=== PATIENT | male | born 1980 | race African-American/Black ===

== ENCOUNTER 2016-10-18 19:27 | Emergency (ER) | payer OTHER ==
--- NOTE | 2016-10-18 20:54 | ED ANKLE/FOOT INJURY COMPLAINT ---
History of Present Illness General Chief Complaint: Foot or Ankle Injury Stated Complaint: PT RGT FOOT IS SWOLLEN Source: patient Exam Limitations: no limitations Allergies Coded Allergies: No Known Allergies (10/18/16) Triage Note: PER PT RLE SWELLING UP INTERMITTANTLY WITHOUT INJURY. THIS TIME 2 DAYS HX OF 3 STENTS 3 YRS AGO CARDIAC} Triage Nurses Notes Reviewed? yes HPI: This patient is a 36-year-old male with past medical history including myocardial infarction who presented to the emergency department today for evaluation of right foot swelling and pain. He reported that swelling and pain began approximately 2 days ago. He feels the pain mostly on the outside of his foot and the top of his foot. The pain is up to a 10 out of 10 with ambulation. He denied any trauma to the area. The patient did report that he is on his feet for many hours a day. He has had similar symptoms in the past when he works long hours and the swelling eventually went down. No radiation of the pain. It has been constant since onset. The patient reported that he tried taking Advil which did help his symptoms. He denied any knee pain or hip pain. No chest pain, difficulty breathing, or abdominal pain. No fevers or chills. (VANE WHALEY PA-C) Vital Signs & Intake/Output Vital Signs & Intake/Output Vital Signs Date Time Temp Pulse Resp B/P Pulse O2 O2 Flow FiO2 Ox Delivery Rate 10/18 2133 97.8 83 20 149/89 97 Room Air 10/18 1938 97.8 84 20 160/100 Reconcile Medications Naproxen (Naprosyn) 500 MG TABLET 1 TAB PO BID PRN pain and inflammation (BONNIE CALLAHAN,XIN Vasquez) Past History Travel History Traveled to [place] past 21 day No Medical History Any Pertinent Medical History? see below for history Neurological: NONE EENT: NONE Cardiovascular: hypertension, STENTS X 3 Respiratory: NONE Gastrointestinal: NONE Hepatic: NONE Renal: NONE Musculoskeletal: NONE Psychiatric: NONE Endocrine: NONE Surgical History Surgical History: non-contributory Psychosocial History What is your primary language Welsh Tobacco Use: Current Daily Use Daily Tobacco Use Amount/Type: => 5 Cigarettes daily Family History Hx Contributory? No (VANE WHALEY PA-C) Review of Systems Review of Systems Constitutional: Reports: no symptoms. EENTM: Reports: no symptoms. Respiratory: Reports: no symptoms. Cardiovascular: Reports: no symptoms. GI: Reports: no symptoms. Genitourinary: Reports: no symptoms. Musculoskeletal: Reports: see HPI. Skin: Reports: see HPI. Neurological/Psychological: Reports: no symptoms. All Other Systems: Reviewed and Negative (JOVANA MCDONOUGH,VANE) Physical Exam Physical Exam Leg/Knee/Thigh Left: normal range of motion, normal inspection Comments: Well-developed well-nourished person in no acute distress HEENT: Head normocephalic, moist mucous membranes Neck: Supple, no lymphadenopathy Back: Antalgic gait Respiratory: No respiratory distress. Speaking in full sentences Right foot: Mild amount of edema to the dorsum of the foot on the lateral aspect. No overlying erythema or ecchymosis. No bony or muscular deformities noted. Capillary refill less than 2 seconds. Dorsalis pedis and posterior tibialis pulses 2+ and strong. Full range of motion at the ankle. Tenderness to palpation over the lateral aspect of the foot Neuro: Alert and oriented x3 Psych: Mood affect normal, normal memory normal judgment. Skin: Warm and dry, no rash on exposed skin (JOVANA MCDONOUGH,VANE) Progress Differential Diagnosis: DVT, CHF, arterial insufficiency, cellulitis, septic arthritis, gout, fracture, dislocation, sprain, contusion, compartmental syndrome Plan of Care: Orders Procedure Date/time Status XRY-FOOT COMPLETE, RIGHT 10/18 2021 Active Diagnostic Imaging: Viewed by Me: Radiology Read. Discussed w/RAD: Radiology Read. Radiology Impression: PATIENT: ASHLEY LEONARD PRESENT AGE: 36 PATIENT ACCOUNT NO: [id number] : 81 LOCATION: [facility] ORDERING PHYSICIAN: VANE WHALEY PA-C SERVICE DATE: 10/18/16 EXAM TYPE: RAD - XRY-FOOT COMPLETE, R EXAMINATION: XR FOOT, RIGHT CLINICAL INFORMATION: Right foot edema. COMPARISON: None. TECHNIQUE: AP, lateral, and oblique views of the right foot. FINDINGS: The bones and soft tissues are unremarkable. No acute fracture. Well-corticated osseous density along the medial malleolus- this may represent a secondary ossicle versus sequela of prior trauma. Alignment is anatomic. Joint spaces are maintained. IMPRESSION: No visible acute osseous or articular abnormality of the right foot. DICTATED BY: MARY WILDER MD DATE/ TIME DICTATED:10/18/162105 TIRE FINISHER:SAMEER DATE/TIME TRANSCRIBED: 10/18/162105 CONFIDENTIAL, DO NOT COPY WITHOUT APPROPRIATE AUTHORIZATION. < Electronically signed in Other Vendor System> SIGNED BY: MARY WILDER MD 10/18/162119 (JOVANA MCDONOUGH,VANE) Departure Departure Disposition: HOME OR SELF CARE Condition: Stable Clinical Impression Primary Impression: Edema of foot Referrals: EMMA CALLAHAN,OTONIEL Forte (PCP/Family) Additional Instructions: Please use the Vikash wrap provided to you here in the emergency department for extra compression of your foot. Elevate your foot when possible. Avoid excessive ambulation and prolonged weight bearing over the next 2 days. He may apply ice to the affected area as needed. Please take the medication for pain as prescribed. Return for any worsening symptoms or concerns. Departure Forms: Customer Survey General Discharge Information Prescriptions: Current Visit Scripts Naproxen (Naprosyn) 1 TAB PO BID PRN pain and inflammation #20 TAB (VANE WHALEY PA-C) PA/BOOTMAKER HAND Co-Sign Statement Statement: ED Attending supervision documentation- [] I saw and evaluated the patient. I have also reviewed all the pertinent lab results and diagnostic results. I agree with the findings and the plan of care as documented in the PA's/BOOTMAKER HAND's documentation. [x] I have reviewed the ED Record and agree with the PA's/BOOTMAKER HAND's documentation. [] Additions or exceptions (if any) to the PAs/BOOTMAKER HAND's note and plan are summarized below: [] (BONNIE CALLAHAN,XIN Vasquez)
--- NOTE | 2016-10-18 21:20 | RADIOLOGY REPORT ---
EXAMINATION: XR FOOT, RIGHT CLINICAL INFORMATION: Right foot edema. COMPARISON: None. TECHNIQUE: AP, lateral, and oblique views of the right foot. FINDINGS: The bones and soft tissues are unremarkable. No acute fracture. Well-corticated osseous density along the medial malleolus- this may represent a secondary ossicle versus sequela of prior trauma. Alignment is anatomic. Joint spaces are maintained. IMPRESSION: No visible acute osseous or articular abnormality of the right foot.
[2016-10-18] MEDS ORDERED: NAPROSYN500 M1 PO (21:28)
[2016-10-18 21:34] VITALS: BP 149/89
== END 2016-10-18 21:35 ==
LOC: ERH 19:27
DX: R60.9 Edema, unspecified (principal)
CPT/HCPCS: 73630-RT; 96372; J1885